=== PATIENT | male | born 1995 | race Hispanic/Latino ===

== ENCOUNTER 2022-04-24 00:39 | Emergency (ER) ==
[2022-04-24 02:09] LABS: #Basophils 0.1 thou/uL (0.0-0.2); #Eosinphils 0.1 thou/uL (0.0-0.7); #Lymphocytes 1.6 thou/uL (1.20-3.40); #Monocytes 0.5 thou/uL (0.11-0.59); %Basophils 0.4 % (0.0-1.0); %Eosinophils 1.1 % (0.0-10.0); %Lymphocytes 13.3 % (21.0-51.0); %Monocytes 3.9 % (0.0-10.0); %Neutrophils 81.3 % (42.0-75.0); Hemoglobin 15.9 g/dL (14.0-18.0); Mean Corpuscular HGB CONC 35.7 g/dL (32.0-36.0); Mean Corpuscular Hemoglobin 31.5 pg (27.0-31.0); Mean Corpuscular Volume 88.4 fL (78.0-98.0); Mean Platelet Volume 9.5 fL (7.4-10.4); Platelet Count 210 thou/uL (130-400); RBC Distribution Width 12.1 % (11.5-14.5); Red Blood Cell (RBC) Count 5.05 mill/uL (4.70-6.10); White Blood Cell (WBC) Count 12.3 thou/uL (4.8-10.8)
[2022-04-24 02:17] LABS: Anion Gap 18 mmol/L (10-20); BUN (Urea Nitrogen) 19 mg/dL (8.9-20.6); Carbon Dioxide 21 mmol/L (22-29); Chloride 103 mmol/L (98-107); Potassium 3.6 mmol/L (3.5-5.1); Sodium 138 mmol/L (136-145)
[2022-04-24 02:18] LABS: ALT (SGPT) 33 U/L (8-55); AST (SGOT) 24 U/L (5-34); Albumin 4.8 g/dL (3.5-5.0); Alkaline Phosphatase 89 U/L (40-110); Bilirubin, Total 0.4 mg/dL (0.2-1.2); CK (CPK) 548 U/L (30-200); Calc. Creatinine Clearance 0 mL/min (70-130); Calcium 9.8 mg/dL (7.8-10.44); Estimated GFR 105; Globulin 3.2 g/dL (2.4-3.5); Glucose 115 mg/dL (70-105); Magnesium 2.2 mg/dL (1.6-2.6)
== END 2022-04-24 04:14 | disposition home or self-care (01) ==
LOC: ERS 00:39
DX: F16.129 Hallucinogen abuse with intoxication, unspecified (principal)
CPT/HCPCS: 36415; 80053; 82550; 83735; 85025; 93005

== ENCOUNTER 2025-05-09 11:20 | Emergency (ER) | payer SELFPAY ==
[2025-05-09 12:17] LABS: #Basophils 0.05 10x3/uL (0.0-0.2); #Eosinophils 0.03 10x3/uL (0.0-0.7); #Monocytes 0.81 10x3/uL (0.11-0.59); #Neutrophils 6.04 10x3/uL (1.40-6.50); %Basophils 0.6 % (0.0-1.0); %Eosinophils 0.4 % (0.0-10.0); %Lymphocytes 16.3 % (21.0-51.0); %Monocytes 9.7 % (0.0-10.0); %Neutrophils 72.6 % (42.0-75.0); Hematocrit 39.2 % (42.0-52.0); Hemoglobin 13.2 g/dL (14.0-18.0); Mean Corpuscular Hemoglobin 28.3 pg (27.0-31.0); Mean Corpuscular Volume 84.1 fL (78.0-98.0); Platelet Count 249 10x3/uL (130-400); Red Blood Cell (RBC) Count 4.66 mill/uL (4.70-6.10); White Blood Cell (WBC) Count 8.32 10x3/uL (4.8-10.8)
[2025-05-09 12:43] LABS: ALT (SGPT) 30 U/L (Less than 45); AST (SGOT) 37 U/L (11-34); Albumin 4.1 g/dL (3.1-4.5); Alkaline Phosphatase 74 U/L (40-110); Anion Gap 14 mmol/L (10-20); BUN (Urea Nitrogen) 16 mg/dL (8.9-20.6); Bilirubin, Total 1.0 mg/dL (0.3-1.2); CK (CPK) 863 U/L (30-200); Calc. Creatinine Clearance 0 mL/min (70-130); Calcium 9.0 mg/dL (7.8-10.44); Carbon Dioxide 20 mmol/L (22-29); Chloride 112 mmol/L (98-107); Globulin 3.3 g/dL (2.4-3.5); Glucose 104 mg/dL (70-105); Lipase 17 U/L (8-78); Magnesium 2.0 mg/dL (1.6-2.6); Potassium 3.2 mmol/L (3.5-5.1); Sodium 143 mmol/L (136-145)
[2025-05-09 12:44] LABS: Acetaminophen Less than 10 mcg/mL (Less than 10); Salicylate Less than 8.0 mg/dL (Less than 8.0)
== END 2025-05-09 15:42 | disposition home or self-care (01) ==
LOC: ERS 11:20
DX: F15.10 Other stimulant abuse, uncomplicated (principal); E86.0 Dehydration
CPT/HCPCS: 36415; 80053; 80307; 82550; 83690; 83735; 84443; 84484; 85025; 93005; 96361; 96374; J2060